=== PATIENT | male | born 1985 | race Two or more races ===

== ENCOUNTER 2017-03-04 09:40 | Outpatient (CLI) | payer BC ==
--- NOTE | 2017-03-04 11:56 | Diagnostic Imaging Report ---
Indication:Scrotal pain Technique: Real time grayscale and duplex Doppler imaging of the scrotum performed. Comparison: None Findings: The size, contour, and echogenicitiy of the testis appear normal bilaterally. Microcalcifications are demonstrated. There is no testicular mass or evidence of torsion. There is good doppler evidence of blood flow within both testes. Right testis measures 4.3 x 2.6 x 3.3 cm. Left testis 4.0 x 2.3 x 3.2 cm. Small bilateral hydroceles are present. On the right side there is a an epididymal cyst measuring about 1.5 cm with low-level internal echoes. Impression: No evidence of testicular mass or torsion. Small bilateral hydroceles. 1.5 cm right epididymal cyst. Testicular microlithiasis
== END 2017-03-04 11:40 | disposition home or self-care (01) ==
LOC: ULS 09:40 → EDBD 10:00 → ULS 11:40
DX: N50.82 Scrotal pain (principal); N43.3 Hydrocele, unspecified; N50.3 Cyst of epididymis
CPT/HCPCS: 76870